=== PATIENT | female | born 1970 | race Caucasian/White ===

== ENCOUNTER → 2017-07-19 | Outpatient (CLI) | payer OTHER | END | disposition home or self-care (01) | LOC: SONOGRAMA 10:42 | DX: R22.2 Localized swelling, mass and lump, trunk (principal) ==

== ENCOUNTER 2018-01-31 09:00 | Day surgery (SDC) | payer OTHER ==
[2018-01-31] MEDS ORDERED: NEXIUM 24HR20 M1 PO (12:24)
== END 2018-01-31 14:35 | disposition home or self-care (01) ==
LOC: AMB-ENDOS 09:00
DX: K29.50 Unspecified chronic gastritis without bleeding (principal)